=== PATIENT | male | born 1985 | race Caucasian/White ===

== ENCOUNTER 2017-04-16 17:15 | Emergency (ER) | payer OTHER ==
[~2017-04-16] VITALS: Ht 175.3 cm; Wt 92.2 kg
[2017-04-16 21:09] LABS: BASOPHIL COUNT 0.1 K/uL (0-0.1); EOSINOPHIL (%) 3.5 % (0-5); EOSINOPHIL COUNT 0.4 K/uL (0-0.3); HEMATOCRIT 46.9 % (38.0-50.0); IMMATURE GRANULOCYTE (%) 0.4 % (0.0-0.7); INSTRUMENT ABS NEUTROPHIL CT 5.9 K/uL; LYMPHOCYTE COUNT 3.2 K/uL (1.0-2.8); MCH 31.9 PG (29.0-34.0); MCHC 34.8 G/DL (30.0-36.0); MCV 91.8 FL (86-99); MEAN PLAT.VOLUME 10.3 uM^3 (9.0-12.4); MONOCYTE (%) 7.8 % (3-12); MONOCYTE COUNT 0.8 K/uL (0-0.8); NEUTROPHIL (%) 56.9 % (45-76); NEUTROPHIL COUNT 5.9 K/uL (1.8-6.4); PLATELET COUNT 208 K/uL (156-360); RBC DIS.WIDTH-CV 11.8 % (11.8-14.6); RBC DIS.WIDTH-SD 39.4 % (39-53); RED BLOOD COUNT 5.11 M/uL (4.00-5.50); WHITE BLOOD COUNT 10.4 K/uL (4.1-10.2)
[2017-04-16 21:37] LABS: ANION GAP 11 MEQ/L (2-14); CHLORIDE 106 MEQ/L (99-109); SAMPLE HEMOLYSIS CHECK 0; SAMPLE ICTERIC CHECK 0; SAMPLE LIPEMIA CHECK 0; SODIUM 142 MEQ/L (136-147); TOTAL BILIRUBIN 0.4 MG/DL (0.0-1.0)
[2017-04-16 21:43] LABS: ALKALINE PHOSPHATASE 56 IU/L (3-129); GFR ESTIMATE (CALCULATED) > 59 mL/min/; GLUCOSE 92 mg/dL (70-99); UREA NITROGEN (BUN) 18 mg/dL (9-23)
[2017-04-16] MEDS ORDERED: LISINOPRIL10 MG PO (21:53)
[2017-04-16] MEDS ORDERED: LANSOPRAZOLE30 MG PO (21:53)
[2017-04-16 21:54] VITALS: BP 153/98
[2017-04-17 06:44] LABS: ANTI-HIV (AIDS STAT TEST) ND; INTERNAL CONTROL VALID? ND
[2017-04-17 11:10] LABS: HBSG INDEX 0.25; HPCA INDEX 0.05
[2017-04-17 11:11] LABS: ANTI-HEPATITIS B CORE (IGM) Nonreactive; HBC IgM INDEX 0.07
[2017-04-17 11:12] LABS: AHBS INDEX > 1000.00; HIV INDEX 0.12; HIV-1/2 AB/AG COMBO Nonreactive; HPCA INDEX 0.06
[2017-04-17 11:16] LABS: HEPATITIS B SURFACE ANTIBODY REACTIVE
== END 2017-04-16 22:15 | disposition home or self-care (01) ==
LOC: EME 17:15
PROVIDERS: Nurse Practitioner Family
DX: Z77.21 Contact with and (suspected) exposure to potentially hazardous body fluids (principal); I10 Essential (primary) hypertension; Y99.0 Civilian activity done for income or pay; Y92.140 Kitchen in prison as the place of occurrence of the external cause; Z87.891 Personal history of nicotine dependence
CPT/HCPCS: 80053; 85025; 86703; 86705; 86706; 86803; 87340; 99281; 99284